=== PATIENT | male | born 1945 | race Asian ===

== ENCOUNTER 2017-12-28 08:24 | Day surgery (SDC) | payer OTHER ==
[2017-12-28] MEDS ORDERED: ECOTRIN PO ONE (08:47)
[2017-12-28] MEDS ORDERED: NACL 0.9% 500 ML 500 ML IV SCH (09:00)
[2017-12-28 09:18] LABS: Basophils # (Auto) 0.1 K/mm3 (0.0-0.1); Basophils % (Auto) 0.7 % (0.0-1.8); Eosinophils # (Auto) 0.3 K/mm3 (0.0-0.4); Eosinophils % (Auto) 3.7 % (0.0-4.3); Hematocrit 42.4 % (35.5-45.6); Hemoglobin 14.1 gm/dl (11.8-15.2); Lymphocytes % (Auto) 26.5 % (13.4-35.0); Mean Corpuscular HGB Conc 33 % (32-34); Mean Corpuscular Hemoglobin 29 pg (28-32); Mean Corpuscular Volume 87 fl (84-94); Monocytes # (Auto) 0.5 K/mm3 (0.0-0.8); Monocytes % (Auto) 7.2 % (0.0-7.3); Platelet Count 251 K/mm3 (140-440); Red Blood Count 4.87 M/mm3 (3.65-5.03); Red Cell Distribution Width 15.3 % (13.2-15.2)
[2017-12-28 09:29] LABS: INR 0.91 (0.87-1.13)
[2017-12-28 09:48] LABS: BUN/Creatinine Ratio 10; Blood Urea Nitrogen 10 mg/dL (9-20); Calcium 9.3 mg/dL (8.4-10.2); Hemolysis Index 1
[2017-12-28] MEDS ORDERED: HEPARIN/NS 5000 UNIT/500ML(CATH LAB) 1,000 ML IR ONE (09:56)
[2017-12-28] MEDS: VERSED ONE ×2 (10:25→10:33)
[2017-12-28] MEDS: SUBLIMAZE ONE ×2 (10:25→10:33)
[2017-12-28] MEDS: XYLOCAINE 2% INFILTRATI ONE ×2 (10:26→10:34)
[2017-12-28] MEDS: HEPARIN 10,000 UNITS/10 ML ONE ×2 (10:26→10:34)
[2017-12-28] MEDS: CALAN ONE ×2 (10:26→10:34)
[2017-12-28] MEDS: NITROGLYCERIN SYRINGE 3 ML ONE ×2 (10:27→10:34)
--- NOTE | 2017-12-28 11:15 | Cardiac Catherization Report ---
CARDIAC CATHETERIZATION REASON FOR PROCEDURE: Chest pain and unstable angina. PROCEDURE: 1. Left heart catheterization. 2. Selective left and right coronary angiography. 3. Left ventricle angiography. 4. Sedation time start 10:33 and end 10:45. DESCRIPTION OF PROCEDURE: The patient was prepped and draped in a sterile fashion after informed consent. The right radial cath site was prepped and draped after a negative Tomy's test. The right radial artery was entered using Seldinger technique followed by placement of a 6-Chinese hydrophilic sheath. Routine radial cocktail was administered via the sheath. A #3.5 left Reinaldo was used for left coronary angiography. A #4 right Reinaldo was used for right coronary angiography. Pigtail catheter was used for left ventricle angiography. The catheters were removed, sheath removed, and hemostasis achieved using a TR band. The patient was returned to the postprocedure unit in stable condition. There were no complications. FINDINGS: HEMODYNAMICS: Left ventricle end diastolic pressure was 14. Ascending aortic pressure was 108/63. There was no significant pressure gradient on pullback across the aortic valve. CORONARY ANGIOGRAPHY: There was moderate diffuse coronary calcification involving both left and right coronary systems. The left main coronary artery contained mild luminal irregularities. The left anterior descending artery was occluded in its proximal segment. This was a long segment of a chronic total occlusion. There was faint collateralization of the LAD by bridging collaterals and most significantly by right to left collaterals. A large ramus intermedius artery contained mild irregularities. The circumflex artery contained mild disease in its distal segment. The right coronary artery was a large dominant vessel. There was a long segment of [id number] mid right coronary disease, with an up to 50% luminal stenosis. More significantly, the right posterior descending artery was notable for a 75-80% stenosis of its proximal segment. The right coronary artery then continued, terminating in a large posterior left ventricular branch. Left ventricle was at the upper limits of normal in size. Left ventricular systolic function appeared well preserved with ejection fraction 55%. Notably, the wall motion appeared reasonably well preserved in the anterior wall LAD territory. CONCLUSION: 1. Severe 2-vessel disease as above. 2. 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 3. 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 4. Well preserved left ventricular systolic function with ejection fraction estimated at 55%. RECOMMENDATION: 1. Aggressive risk factor modification and medical therapy. 2. The patient will benefit from revascularization, coronary artery bypass to the LAD and posterior descending branch of the right coronary artery will be optimal revascularization strategy. If the patient is not a candidate for coronary bypass, then a limited revascularization with coronary intervention to the right coronary artery will be a second option. [facility]# [id number] KARSTEN/DELISA
--- NOTE | 2017-12-28 11:16 | Discharge Summary ---
Short Stay Discharge Plan Activity: advance as tolerated Weight Bearing Status: Full Weight Bearing Diet: low fat, low cholesterol, low salt, diabetic Wound: keep clean and dry Special Instructions: no heavy lifting (3 days), hold Metformin (48hrs) Follow up with: SAKINA LEMUS MD [Primary Care Provider] - 7 Days KHADAR LOPES MD [Staff Physician] - 7 Days
[2017-12-28] MEDS ORDERED: NACL 0.9% 1000 ML 1,000 ML IV SCH (12:00)
[2017-12-28 14:14] VITALS: BP 104/77
== END 2017-12-28 15:06 | disposition home or self-care (01) ==
LOC: CATHLABREC 08:24
PROVIDERS: ATTEND Internal Medicine Cardiovascular Disease
DX: I25.110 Atherosclerotic heart disease of native coronary artery with unstable angina pectoris (principal); E78.00 Pure hypercholesterolemia, unspecified; K21.9 Gastro-esophageal reflux disease without esophagitis; E11.9 Type 2 diabetes mellitus without complications; Z98.49 Cataract extraction status, unspecified eye; Z79.899 Other long term (current) drug therapy; Z79.82 Long term (current) use of aspirin; Z79.84 Long term (current) use of oral hypoglycemic drugs; Z87.891 Personal history of nicotine dependence; Z98.890 Other specified postprocedural states
CPT/HCPCS: 36415; 80048; 82962; 85025; 85610; 85730; 93005; 93010; 93458; 99156; C1894; J1644; J2250; J3010; J7040; Q9967